=== PATIENT | male | born 2000 | race African-American/Black ===

== ENCOUNTER 2024-08-26 14:15 | Inpatient (IN) | payer OTHER ==
[2024-08-26] MEDS ORDERED: chlordiazePOXIDE HCL 25 MG CAPSULE PO PRN (15:14)
[2024-08-26] MEDS ORDERED: NALOXONE (NARCAN) HCL 4 MG/0.1 ML SPRAY NS PRN (15:14)
[2024-08-26] MEDS ORDERED: MAG HYDROX/AL HYDROX/SIMETH 30 ML UNIT-DOSE CUP PO PRN (15:14)
[2024-08-26] MEDS ORDERED: LOPERAMIDE HCL 2 MG CAPSULE PO PRN (15:14)
[2024-08-26] MEDS ORDERED: guaiFENesin 600 MG TABLET.ER (FP) PO PRN (15:14)
[2024-08-26] MEDS ORDERED: BENZONATATE 200 MG CAPSULE PO PRN (15:14)
[2024-08-26] MEDS ORDERED: BISMUTH SUBSALICYLATE 524 MG/30 ML PO PRN (15:14)
[2024-08-26] MEDS ORDERED: IBUPROFEN 400 MG TABLET (FP) PO PRN (15:14)
[2024-08-26] MEDS ORDERED: POLYETHYLENE GLYCOL (HEALTHYLAX) 3350 17 GM PACKET PO PRN (15:14)
[2024-08-26] MEDS ORDERED: ACETAMINOPHEN 325 MG TABLET (FP) PO PRN (15:14)
[2024-08-26] MEDS ORDERED: DICYCLOMINE HCL 10 MG CAPSULE PO PRN (15:14)
[2024-08-26] MEDS ORDERED: BENZOCAINE/MENTHOL (CHLORASEPTIC ) LOZENGE MM PRN (15:14)
[2024-08-26] MEDS ORDERED: MAGNESIUM HYDROX 2400MG/30ML ORAL SUSPENSION 30 ML CUP PO PRN (15:14)
[2024-08-26] MEDS ORDERED: TRIMETHOBENZAMIDE HCL 200MG/2ML INJ IM ONE (15:22)
[2024-08-26] MEDS: TRIMETHOBENZAMIDE HCL 200MG/2ML INJ IM ONE (15:25)
[2024-08-26] MEDS: NICOTINE 14 MG/24 HOURS TOPICAL PATCH TD SCH (15:31)
[2024-08-26] MEDS ORDERED: chlordiazePOXIDE HCL 25 MG CAPSULE ONE (15:33)
[2024-08-26] MEDS: chlordiazePOXIDE HCL 25 MG CAPSULE PO ONE (15:34)
[2024-08-26 15:41] VITALS: BMI 20.5
[2024-08-26] MEDS: PRENATAL VITAMINS W/ FOLIC ACID TABLET (FP) PO SCH (15:51)
[2024-08-26] MEDS: METHOCARBAMOL 500 MG TABLET PO PRN (17:37)
[2024-08-26] MEDS: hydrOXYzine PAMOATE 25 MG CAPSULE (FP) PO PRN (17:37)
[2024-08-26] MEDS: chlordiazePOXIDE HCL 25 MG CAPSULE PO SCH (17:38)
[2024-08-26] MEDS: ONDANSETRON *ODT* 4 MG TABLET SL PRN (17:48)
[2024-08-26] MEDS: IBUPROFEN 600 MG TABLET (FP) PO PRN (22:57)
[2024-08-26] MEDS: THIAMINE 100 MG TABLET PO SCH (22:57)
[2024-08-26] MEDS: MELATONIN 5 MG TABLETS PO SCH (22:57)
[2024-08-27] MEDS: TRIMETHOBENZAMIDE HCL 200MG/2ML INJ IM ONE ×2 (11:00→18:30)
[2024-08-27] MEDS: LORazepam 2 MG/ML SDV VIAL IM ONE (11:04)
[2024-08-27 12:29] LABS: MCHC 32.6 g/dl (32.3-36.5); MEAN CELL VOLUME 84.5 fl (79.0-92.2); MEAN PLT VOLUME 12.5 fl (9.4-12.4); PLATELET COUNT 208 x10^3/uL (163-337); RDW 12.7 % (11.9-15.3)
[2024-08-27 12:35] LABS: CHLORIDE 102 mmol/L (98-107); POTASSIUM 3.7 mmol/L (3.5-5.1); SODIUM 138 mmol/L (136-145)
[2024-08-27 12:44] LABS: CALCIUM 9.8 mg/dL (8.5-10.1)
[2024-08-27 12:45] LABS: ANION GAP 5 mmol/L (4-13); BLOOD UREA NITROGEN 9.1 mg/dL (7-18); CO2 31 mmol/L (21-32); GLUCOSE,RANDOM 96 mg/dL (74-106)
[2024-08-27 12:47] LABS: CREATININE 0.9 mg/dL (0.55-1.3)
[2024-08-27 12:48] LABS: SGPT/ALT 28 U/L (13-61)
[2024-08-27 12:49] LABS: BILIRUBIN,TOTAL 0.8 mg/dL (0.2-1); SGOT/AST 26 U/L (15-37); TOT PROT 6.8 g/dl (6.4-8.2)
[2024-08-27 12:50] LABS: ALK PHOS 80 U/L (45-117)
[2024-08-28] MEDS: chlordiazePOXIDE HCL 25 MG CAPSULE PO SCH (06:50)
[2024-08-29] MEDS ORDERED: chlordiazePOXIDE HCL 10 MG CAPSULE PO PRN
[2024-08-29 02:07] VITALS: BP 133/57; PULSE 49; RESP 17; TEMP 97.6
[2024-08-29] MEDS: TRIMETHOBENZAMIDE HCL 200MG/2ML INJ IM ONE (03:04)
[2024-08-29] MEDS: chlordiazePOXIDE HCL 10 MG CAPSULE PO SCH (06:00)
[2024-08-30] MEDS ORDERED: chlordiazePOXIDE HCL 10 MG CAPSULE PO SCH (05:00)
[2024-08-31] MEDS ORDERED: chlordiazePOXIDE HCL 10 MG CAPSULE PO ONE (05:00)
== END 2024-08-29 09:04 | disposition short-term general hospital (02) | DRG 775 ==
LOC: YASAS 14:15 → Y6N 15:49
PROVIDERS: ADMIT Allergy & Immunology; ATTEND Allergy & Immunology
PROC: HZ2ZZZZ Detoxification Services for Substance Abuse Treatment (ICD-10-PCS; principal; 2024-08-26)
DX: F10.230 Alcohol dependence with withdrawal, uncomplicated (principal); F12.10 Cannabis abuse, uncomplicated; F17.210 Nicotine dependence, cigarettes, uncomplicated; R11.2 Nausea with vomiting, unspecified; R53.1 Weakness; R07.9 Chest pain, unspecified
CPT/HCPCS: 36415; 80053; 80305; 80307; 82140; 85027; 86780; 93005; 93010; Q0162

== ENCOUNTER 2024-08-29 03:51 | Observation (INO) | payer OTHER ==
[2024-08-29] MEDS ORDERED: TRIMETHOBENZAMIDE HCL 200MG/2ML INJ IM ONE ×3 (04:13→22:27)
[2024-08-29] MEDS: TRIMETHOBENZAMIDE HCL 200MG/2ML INJ IM ONE ×2 (04:17→14:26)
[2024-08-29 09:57] VITALS: RESP 18
[2024-08-29] MEDS ORDERED: ACETAMINOPHEN INJECTION 100 ML ONE (14:17)
[2024-08-29] MEDS: ACETAMINOPHEN 1000 MG/100 ML BAG IVPB ONE (14:26)
[2024-08-29] MEDS ORDERED: LORazepam 2 MG/ML SDV VIAL IVPUSH PRN (18:39)
[2024-08-29] MEDS: TRIMETHOBENZAMIDE HCL 200MG/2ML INJ IM PRN (22:35)
[2024-08-30 00:54] VITALS: BMI 19.4
[2024-08-30 07:09] LABS: BASOPHILS # 0.03 x10^3/uL (0.01-0.08); EOSINOPHIL % 2.8 % (0.8-7.0); EOSINOPHILS # 0.18 x10^3/uL (0.04-0.54); HEMOGLOBIN 13.9 g/dL (13.7-17.5); MCHC 33.9 g/dl (32.3-36.5); MEAN CELL VOLUME 81.8 fl (79.0-92.2); MEAN PLT VOLUME 11.6 fl (9.4-12.4); MONOCYTE # 0.79 x10^3/uL (0.30-0.82); MONOCYTE % 12.4 % (5.3-12.2); PLATELET COUNT 214 x10^3/uL (163-337); RDW 12.3 % (11.9-15.3)
[2024-08-30 07:41] LABS: POTASSIUM 3.1 mmol/L (3.5-5.1)
[2024-08-30 07:47] LABS: BLOOD UREA NITROGEN 6.8 mg/dL (7-18); CALCIUM 9.1 mg/dL (8.5-10.1); MAGNESIUM 1.9 mg/dL (1.8-2.4)
[2024-08-30 07:50] LABS: CREATININE 0.7 mg/dL (0.55-1.3)
[2024-08-30 07:51] LABS: PHOSPHOROUS 4.8 mg/dL (2.5-4.9)
[2024-08-30 07:52] LABS: BILIRUBIN,TOTAL 0.8 mg/dL (0.2-1); TOT PROT 6.3 g/dl (6.4-8.2)
[2024-08-30 07:54] LABS: ALBUMIN 3.6 g/dl (3.4-5.0)
[2024-08-30] MEDS: POTASSIUM CHLORIDE ORAL LIQUID 20 MEQ/15 ML PO ONE (09:30)
[2024-08-30] MEDS: SODIUM CHLORIDE 500 ML IV STA (12:18)
[2024-08-30] MEDS: THIAMINE 100 MG TABLET PO ONE (13:25)
[2024-08-30] MEDS: FOLIC ACID 1 MG TABLET (FP) PO ONE (13:25)
[2024-08-30 18:47] VITALS: BP 119/66; PULSE 63; TEMP 97.9
== END 2024-08-30 20:35 | disposition home or self-care (01) ==
LOC: JER 03:51 → JERBED 06:53 → J4W 08-30 00:06
PROVIDERS: ADMIT Student in an Organized Health Care Education/Training Program; ATTEND Nurse Practitioner Family
PROC: 3E033NZ Introduction of Analgesics, Hypnotics, Sedatives into Peripheral Vein, Percutaneous Approach (ICD-10-PCS; principal; 2024-08-29)
PROC: 3E0337Z Introduction of Electrolytic and Water Balance Substance into Peripheral Vein, Percutaneous Approach (ICD-10-PCS; 2024-08-29)
PROC: 3E023GC Introduction of Other Therapeutic Substance into Muscle, Percutaneous Approach (ICD-10-PCS; 2024-08-29)
DX: F10.239 Alcohol dependence with withdrawal, unspecified (principal); K92.0 Hematemesis; R94.31 Abnormal electrocardiogram [ECG] [EKG]; Z91.013 Allergy to seafood
CPT/HCPCS: 36415; 80053; 83735; 84100; 84484; 85025; 93005; 93010; 96361; 96372; 96374; 99285-25; G0378; J0131